=== PATIENT | female | born 1940 | race Caucasian/White ===

== ENCOUNTER → 2024-12-13 19:30 | Outpatient (REF) | payer MEDICARE, BC, SELFPAY ==
[2024-12-14 08:49] LABS: Urine Character Slightly Cloudy (Clear)
[2024-12-14 09:01] LABS: Urine Red Blood Cell 50-60 /HPF (0-2); Urine Squamous Cell 0-2 /LPF (Few)
== END ==
LOC: OLABN 19:30
PROVIDERS: ATTENDING PHYSICIAN Student in an Organized Health Care Education/Training Program
DX: R31.0 Gross hematuria (principal)
CPT/HCPCS: 81003; 81015; 87086